=== PATIENT | male | born 1980 | race Caucasian/White ===

== ENCOUNTER 2019-03-07 19:32 | Emergency (ER) | payer OTHER ==
[~2019-03-07] VITALS: Ht 172.7 cm; Wt 72.6 kg
[2019-03-07] MEDS ORDERED: CYMBALTA30 MG ORAL (19:40)
[2019-03-07] MEDS ORDERED: AMOXICILLIN125 MG ORAL (19:40)
[2019-03-07] MEDS ORDERED: SEROQUEL200 MG ORAL (19:40)
[2019-03-07] MEDS ORDERED: LAMICTAL150 MG ORAL (19:40)
--- NOTE | 2019-03-07 19:41 | NUR ---
ED Nurse Note: Pt ambulated to ED from home c/o abdominal pain non-radiating in upper epigastric area. Pt was seen at a urgent care today and was given amoxicilin.
[2019-03-07 19:45] VITALS: BP 142/95
--- NOTE | 2019-03-07 20:05 | Emergency Room Report ---
History of Present Illness General Chief Complaint: Abdominal Pain Source: Patient Present Illness HPI This is a 39-year-old male who presented after increased abdominal discomfort. Patient reportedly had recently been started on antibiotics. He had been taking azithromycin 1 g earlier in the day. He reportedly had been having some increased urethral discharge. He reports having a generalized abdominal pain and cramping. He reports having some nausea without any vomiting. He denies any diarrhea. Patient had onset of symptoms after taking the medications. Allergies: Coded Allergies: No Known Allergies (Unverified , 03/07/19) Patient History Past Medical History: see triage record Reviewed Nursing Documentation: PMH: Agreed; PSxH: Agreed Nursing Documentation-PMH History Of Psychiatric Problem: Yes - bipolar depression Review of Systems All Other Systems: negative except mentioned in HPI Physical Exam Vital Signs Date Time Temp Pulse Resp B/P (MAP) Pulse Ox O2 Delivery O2 Flow Rate FiO2 03/07/19 19:35 98.2 81 14 148/97 (114) 100 Room Air Sp02 EP Interpretation: reviewed, normal General Appearance: normal inspection, well appearing, no apparent distress, alert, GCS 15, non-toxic Head: atraumatic ENT: normal ENT inspection, hearing grossly normal, normal voice Neck: normal inspection, full range of motion, supple, no bony tend Respiratory: normal inspection, lungs clear, normal breath sounds, no respiratory distress, no retraction, no wheezing Cardiovascular #1: regular rate, rhythm, no edema Gastrointestinal: normal inspection, normal bowel sounds, non tender, soft, no guarding, no hernia Genitourinary: no CVA tenderness Musculoskeletal: normal inspection, back normal, normal range of motion Neurologic: normal inspection, alert, oriented x3, responsive, linotype mechanic III-XII nml as tested, speech normal Psychiatric: normal inspection, judgement/insight normal, mood/affect normal Medical Decision Making Diagnostic Impression: Primary Impression: Adverse drug reaction ER Course .Patient presented for increased abdominal pain. Differential diagnosis include was not limited to gastroenteritis, adverse drug reaction, bowel obstruction among others. Patient has a benign exam and does not appear to require any further imaging or laboratory testing at this time patient is noted to have increased abdominal discomfort as well as nausea after taking azithromycin. EKG showed no evidence of QT prolongation. This appears to be a drug reaction. Patient was given medications for symptomatic treatment and was noted to have improvement in symptoms. Patient be discharged home. Last Vital Signs Date Time Temp Pulse Resp B/P (MAP) Pulse Ox O2 Delivery O2 Flow Rate FiO2 03/07/19 19:45 81 14 Room Air 03/07/19 19:45 98.2 142/95 100 Status: improved Disposition: HOME, SELF-CARE Condition: Stable Scripts Dicyclomine Hcl* (DICYCLOMINE HCL*) 10 Mg Capsule 10 MG ORAL QID, #20 CAP Prov: Rolando Byrd MD 03/07/19 Ondansetron (Zofran) 4 Mg Tablet 4 MG ORAL Q6H PRN for Nausea & Vomiting, #30 TAB 0 Refills Prov: Rolnado Byrd MD 03/07/19 Referrals: NON PHYSICIAN (PCP) Rolando Byrd MD Mar 07, 2019 20:05
[2019-03-07] MEDS ORDERED: Dicyclomine HCl 10mg/5ml oral soln ORAL ONE (20:15)
[2019-03-07] MEDS ORDERED: Lidocaine 2% Visc 15ml soln ORAL ONE (20:15)
[2019-03-07] MEDS ORDERED: ZOFRAN4 MG ORAL (20:21)
[2019-03-07] MEDS ORDERED: DICYCLOMINE HCL10 MG ORAL (20:29)
--- NOTE | 2019-03-07 20:40 | NUR ---
ER DISCHARGE NOTE: Patient is cleared to be discharged per ERMD, pt is aox4, on room air, with stable vital signs. pt was given dc and prescription instructions, pt was able to verbalize understanding, pt id band removed. pt is able to ambulate with steady gait. pt took all belongings.
== END 2019-03-07 20:40 | disposition home or self-care (01) ==
LOC: EMR 19:56
DX: T36.3X5A Adverse effect of macrolides, initial encounter (principal); Y92.9 Unspecified place or not applicable; F31.9 Bipolar disorder, unspecified; F32.9 Major depressive disorder, single episode, unspecified
CPT/HCPCS: 93005; 99282